=== PATIENT | female | born 1940 | race Hispanic/Latino ===

== ENCOUNTER → 2017-05-30 | Day surgery (SDC) | payer OTHER ==
[~2017-05-30] VITALS: Ht 157.5 cm; Wt 56.7 kg
[~2017-05-30] MED LIST: ASPIRIN EC81 M1 PO; ATORVASTATIN CA40 M1 PO; CENTRUM WOMEN1 EACH PO; HYDROXYZINE50 MG PO; LISINOPRIL20 M1 PO; LISINOPRIL20 MG PO; LOPRESSOR 25MG25 MG PO; MECLIZINE HCL12.5 M1 PO; METOPROLOL TART25 M1 PO; PREDNISONE10 MG PO; SIMVASTATIN20 MG PO
--- NOTE | 2017-05-30 08:31 | Operative Report ---
Operative/Inv Procedure Report Surgery Date: 05/30/17 Name of Procedure: Right endoscopic carpal tunnel release Pre-Operative Diagnosis: Right carpal tunnel syndrome Post-Operative Diagnosis: Same Estimated Blood Loss: scant Surgeon/Nursing Resident: Rosalino Mccormick MD Anesthesia: moderate sedation Drains: None Specimens: None Tourniquet: 10 minutes Complications: None Operative Indication: The patient had signs and symptoms electrodiagnostic evidence of right carpal tunnel syndrome. She elected to undergo right endoscopic carpal tunnel release. She understood the planned procedure as well as the risks benefits complications and alternatives and she signed the informed consent form. Operative/Procedure Note Note: Procedure in detail: After informed consent was obtained the patient was taken to the operating room placed on the operative table in supine position with the right arm abducted on the arm table. After satisfactory sedation a well-padded tourniquet was placed around the right upper arm. A median nerve block was then administered in the distal volar forearm using a arqo-hec-gxlm mixture of 0.5% plain Marcaine and 2% plain Xylocaine. A small amount of local anesthesia was also administered subcutaneously at the volar wrist. The arm was prepped and draped in usual sterile fashion. Usual surface landmarks were identified. A small transverse skin incision line was drawn at the volar wrist parallel and proximal to the distal wrist flexion crease. The arm was exsanguinated with an Esmarch bandage and the tourniquet was inflated to 250 mmHg. Tourniquet time was 11 minutes. A #15 scalpel blade was used to make the skin incision at the volar wrist. The underlying soft tissues were gently spread with tenotomy scissors and 2 Ragnell retractors thereby revealing the underlying antebrachial fascia. Then using a scissors a distally based U-shaped fascial flap was created and held in place with a small double hook. The synovial elevator was then inserted into the carpal canal to clear adhesions from the undersurface of the transverse carpal ligament. His was followed by insertion of the serial carpal tunnel dilator hamate finders. Finally the MicroAire Oscar endoscopic device was inserted into the carpal canal in line with the fourth metacarpal ray. The distal border of the transverse carpal ligament was identified as was the distal fat pad. The blade was engaged and several passes were made through the overlying ligament. Care was taken to ensure that the distal border of the ligament was completely divided. The endoscope was removed and the proximal remaining portion of the ligament was divided under direct vision with a scissors. The fascial flap was then excised and discarded. Then working in retrograde fashion from distal to proximal the antebrachial fascia in the wrist was divided with the scissors on the ulnar side of the wrist. 0.5% plain Marcaine was then infiltrated around the wound subcutaneously and instilled topically directly on the nerve. Attention was then turned to closure. The dermis was closed using interrupted inverted 5-0 Monocryl suture. The skin was reapproximated with Dermabond and Steri-Strips. A dry sterile gauze dressing was then applied. The patient tolerated the procedure well and was taken to recovery room in stable condition.
== END ==
LOC: STS 05-23 07:00
DX: G56.01 Carpal tunnel syndrome, right upper limb (principal); I10 Essential (primary) hypertension; I48.91 Unspecified atrial fibrillation; Z79.01 Long term (current) use of anticoagulants
CPT/HCPCS: J2001; J2250